=== PATIENT | female | born 2005 | race Caucasian/White ===

== ENCOUNTER 2023-01-14 23:57 | Observation (INO) | payer SELFPAY ==
[2023-01-14 23:56] VITALS: BP 148/107
[2023-01-15] VITALS (89 sets, daily range): BP systolic 75–171; BP diastolic 41–107; PULSE 47–117; RESP 6–48; TEMP 36.4–37.1; O2SAT 93–100; BMI 32.9; BMI 36.7
--- NOTE | 2023-01-15 00:07 | ED_ITS ---
Documented by User: Elliot Manzano MD 01/17/23 07:29 HPI - General Adult General Chief complaint: Altered Mental Status Stated complaint: ALTERED MENTAL STATUS Time Seen by Provider: 01/15/23 00:07 History of Present Illness HPI narrative: Patient brought in via EMS with a complaint of a seizure. Patient has a history of epilepsy and is currently on divalproex, hydroxyzine, venlafaxine, and lithium. Patient was admitted to [facility] December 31 for seizure workup. She was seen by neurology. She had 4 visits in the last couple of weeks for seizure and syncope. The patient has a history of attention deficit/hyperactivity disorder, anxiety, cerebral palsy, depression, oppositional defiant disorder. She had CSF shunt, and tonsillectomy. Patient also had a recent psychiatric admission where she is regarded as Gerard?work on her tiled, 17-year-old t ransgender female to male patient. Patient's history is complicated by PTSD, and lack of social support, and homelessness. She has documented noncompliance with her antiepileptic medicine. She [facility] [place]. Patient was adopted at the age of 4. He does not have any relationship with the adoptive family. Patient is not providing history on arrival. The only history we're able to obtain is from Feliciano Cabrera a 17-year-old male from [place] who states he met this patient 2 weeks ago on [facility]. He has been conversing with her and went and picked her up Sunday morning at 4:30 AM. He states he picked the patient up at [address] [facility] [place] [address]. He states that looked like the school grounds area. He was not concerned because he states the patient is getting her GED. This person states he had intercourse with the patient yesterday. He states in the afternoon they went to the family reunion and the patient She drank it twisted tea. She was acting normal and later was sleeping so they were walking the patient to the car and she started vomiting she was shaking her eyes were closed the called for one of the relatives with the nurse who placed the patient on the right lateral decubitus. She stated she noted the patient rolling her eyes and looking like she was having a seizure. The patient did not have any urinary incontinence or bowel incontinence. She did not bite her tongue. EMS was contacted and they stated the patient had a bag of pills with her. Feliciano stated that he knows the patient has a history of seizures because during the conversation she mentioned that she wasn't the hospital in [place] 2 weeks ago to be checked for seizures and they didn't want testing there. He denies any other drug abuse, or trauma. States the patient had not been sick with any runny nose, cough had not complained of anything throughout the day. Patient arrives to the emergency department and has not conversive. She is not providing any history. She is awake alert, makes eye contact intermittently. Related Data Home Medications Medication Instructions Recorded Confirmed divalproex 500 mg tablet,delayed 500 mg PO BID 01/15/23 01/16/23 release lithium carbonate 300 mg capsule 300 mg PO TID 01/15/23 01/16/23 venlafaxine 75 mg capsule,extended 75 mg PO QDAY 01/15/23 01/16/23 release 24 hr docusate sodium 100 mg capsule 100 mg PO BID PRN constipation 01/16/23 01/16/23 (Col-Rite) hydroxyzine pamoate 25 mg capsule 25 mg PO BID PRN anxiety 01/16/23 01/16/23 (Vistaril) prazosin 5 mg capsule (Minipress) 5 mg PO DAILY 01/16/23 01/16/23 Allergies Allergy/AdvReac Type Severity Reaction Status Date / Time haloperidol [From Haldol] Allergy Severe Verified 01/15/23 13:15 Review of Systems ROS Status of ROS unobtainable due to medical condition and unobtainable due to mental status Exam Narrative Exam Narrative: Nurses notes and vital signs reviewed and patient is not hypoxic. General: Nontoxic, and in no apparent distress. Skin: Warm, dry, no pallor noted. No Rash Head: Normocephalic, atraumatic. Neck: Supple, non-tender. Eye: Pupils are equal, round and EOMI. No scleral icterus. Ears, Nose, Mouth, and Throat: TM clear, no posterior oropharynx erythema or nasal mucosal hypertrophy, uvula is mid-line Oral mucosa is moist Cardiovascular: Regular Rate and Rhythm without murmur, gallop or rub. Respiratory: No accessory muscle use or respiratory distress. Lungs are clear to auscultation, no wheezing, rales or rhonchi Chest Wall: no tenderness Back: No midline thoracic or lumbar vertebral tenderness. No CVA tenderness Musculoskeletal: normal ROM, no calf or popliteal tenderness, no lower extremity edema/swelling GI: obese,Abdomen is soft, non-distended. Normal bowel sounds. Lower abdomen old ecchymosis noted. No masses appreciated. No tenderness to palpation. No rebound, guarding, or rigidity noted. Genitourinary: Female genitalia noted. There is post amount of semen in the vaginal area. There is no erythema, no ecchymosis, no tears noted. Neurological: A&O x1. No Focal cranial nerve dysfunction observed. Moves all extremities. Psychiatric: Uncooperative, intermittent tremor and staring at times. Patient is able to blink through the episodes. She is able to talkAnswered questions, and and understand during this episode and her vital signs remained normal. Constitutional Vital Signs, click to edit/add: Last Vital Signs Temp 97.6 F 01/16/23 07:11 Pulse 96 H 01/16/23 13:50 Resp 27 H 01/16/23 13:50 BP 116/72 01/16/23 11:43 Pulse Ox 98 01/16/23 15:48 O2 Del Method Room Air 01/16/23 15:48 Course Vital Signs Vital signs: Vital Signs Blood Pressure 148/107 H 01/14/23 23:56 Temperature 97.6 F 01/16/23 07:11 Pulse Rate 96 H 01/16/23 13:50 Respiratory Rate 27 H 01/16/23 13:50 Blood Pressure 116/72 01/16/23 11:43 Pulse Oximetry 98 01/16/23 15:48 Oxygen Delivery Method Room Air 01/16/23 15:48 Medical Decision Making [facility] Narrative Medical decision making narrative: Because of the patient's history and findings on exam police was contacted and case repeat head to be done. We did not know if the patient had any consensual coitus or not. When the patient woke up and was willing to answer questions she did tell me that the intercourse was consensual. Can't did talk to the waiter/waitress formal and debarker operator who determined there was no criminal activity suspected and that the patient and friend were free to do as they like. Patient's mentation was improving. She was more conversive and answering questions. Medical records were obtained from him before. The patient had admission on the , , , to the emergency department for seizures. She was [facility] was seen by neurology and psychiatry and subsequently was discharged on Depakote 750 mg twice a day. Patient had an EKG done. She had an MRI scheduled as an outpatient and a neurology follow-up. The patient does work was done and is unremarkable. Patient was given normal saline. as we were discussing the patient's discharge plan, the patient stated she has to urinate. As we asked the patient to get up to get to the commode she started rolling her eyes again turning her head to the left and although she is answering questions during this episode, she at times stares. The patient has a history of seizures and her CT scan demonstrates brain congenital abnormalities. Although there is also a behavioral component to her presentation the patient was given 1 mg of Ativan IV. At this time I do not have a lithium level, or at Depakote level. The patient was loaded with 1.5 g of Keppra and [facility] was contacted to transfer the patient. Patient sleeping at this time. Vital signs are stable. Patient was discussed with Dr. Fontenot from [facility] medicine service who has accepted the patient in transfer. Pt signed out to Dr. Cobb at the end of my shift awaiting bed at [facility]. Dr Cobb : At at 12:15 PM and the patient has been here almost 12 hours the patient opens her eyes and sit up rocking herself back and forth while talking to us she did request that she is hungry and she would like some food but I did explain to her that she need to be more awake with a fluid The patient still awaiting placement after she had an accepting doctor in [facility] the patient case was discussed with Dr. Amato she will be admitted to the hospital awaiting bed assignment from [facility] While taking the patient up to her room awaiting assignment from [facility] the patient started crying and trying to get out of bed she was provided with Ativan as well as Benadryl IM, spoke with patient extensively she does not want to say why she is crying, restraints applied to avoid the patient getting out of bed and hurting herself After receiving medication the patient was still crying she broke of the soft restraint I have to put her in leather restraints the patient did mention that she wants me to give her all her medications so that she and she continues to crack uncontrollably, the patient is not giving a lot of complaint except for crying Doctor Lm called and updated Differential Diagnosis Differential Diagnosis: Seizure, epilepsy, drug abuse Medical Records Medical records reviewed: Yes I reviewed the patient's medical records Medical records narrative: [facility] records it by me, And were used to aid in the medical decision making. All 84 pages of medical records from admissions and emergency department visits with consultations to neurology and psych highest wrist were reviewed by me Lab Data Lab results reviewed: Yes I reviewed the patient's lab results Labs: Lab Results 01/15/23 01/15/23 Range/Units 00:05 01:45 WBC 11.9 H (4.0-11.0) 10^3/uL RBC 4.47 (4.20-5.40) 10^6/uL Hgb 13.5 (12.0-16.0) g/dL Hct 40.1 (36.0-48.0) % MCV 89.7 (81.0-99.0) fL MCH 30.2 (26.7-34.0) pg MCHC 33.7 (29.9-35.2) g/dL RDW 13.0 (11.0-15.0) % Plt Count 306 (150-450) 10^3/uL MPV 9.9 (9.5-13.5) fL Neut % (Auto) 67.1 (43.0-75.0) % Lymph % (Auto) 17.9 L (20.5-60.0) % [place] % (Auto) 12.1 H (1.7-12.0) % Eos % (Auto) 1.5 (0.9-7.0) % Baso % (Auto) 0.4 (0.2-2.0) % Neut # (Auto) 8.0 H (1.4-6.5) 10^3/uL Lymph # (Auto) 2.1 (1.2-3.8) 10^3/uL [place] # (Auto) 1.4 H (0.3-0.8) 10^3/uL Eos # (Auto) 0.2 (0.0-0.7) 10^3/uL Baso # (Auto) 0.1 (0.0-0.1) 10^3/uL Abs Immat Gran (auto) 0.12 H (0.00-0.03) 10^3/uL Imm/Tot Granulo (auto) 1.0 H (0.0-0.5) % Sodium 139 (136-145) mmol/L Potassium 3.8 (3.5-5.1) mmol/L Chloride 104 (98-107) mmol/L Carbon Dioxide 24.2 (21.0-32.0) mmol/L Anion Gap 14.6 BUN 16.0 (6.4-19.3) mg/dL Creatinine 1.11 H (0.55-1.02) mg/dL Est GFR ( Amer) >60 (>=60) Est GFR (Non-Af Amer) >60 (>=60) BUN/Creatinine Ratio 14.4 Glucose 112 H (74-106) mg/dL Lactate 1.6 (0.4-2.0) mmol/L Calcium 9.0 (8.5-10.1) mg/dL Total Bilirubin 0.2 (0.2-1.0) mg/dL AST 18 (15-37) U/L ALT 33 (14-59) U/L Alkaline Phosphatase 67 (46-116) U/L Ammonia 51 H* (11-32) umol/L Total Protein 7.5 (6.4-8.2) g/dL Albumin 3.9 (3.4-5.0) g/dL Globulin 3.6 g/dL Albumin/Globulin Ratio 1.1 TSH 1.966 (0.516-4.130) uIU/mL Urine Color Yellow (YELLOW) Urine Clarity Clear (CLEAR) Urine pH 6.0 (5.0-9.0) Ur Specific [place] 1.025 (1.005-1.025) Urine Protein Trace (NEG/TRACE) mg/dL Urine Glucose (UA) Negative (NEGATIVE) mg/dL Urine Ketones Trace A (NEGATIVE) mg/dL Urine Occult Blood Small A (NEGATIVE) Urine Nitrite Negative (NEGATIVE) Urine Bilirubin Negative (NEGATIVE) Urine Urobilinogen 1.0 (0.2-1.0) EU/dL Ur Leukocyte Esterase Negative (NEGATIVE) Urine RBC 0-2 (0-2) #/HPF Urine WBC 0-2 A (NONE SEEN) #/HPF Ur Squamous Epith Cells Rare (NONE/RARE) #/LPF Urine Crystals None seen (None Seen) #/HPF Urine Bacteria Small A (NONE SEEN) #/HPF Urine Casts None seen (NONE SEEN) #/LPF Urine Mucus Small A (NONE SEEN) Ur Culture Indicated? Yes Urine HCG, Qual Negative (NEGATIVE) Salicylates <2.8 (<=19.9) mg/dL Urine Opiates Screen Negative (NEGATIVE) Ur Buprenorphine Scrn Negative (NEGATIVE) Ur Oxycodone Screen Negative (NEGATIVE) Urine Methadone Screen Negative (NEGATIVE) Ur Propoxyphene Screen Negative (NEGATIVE) Acetaminophen <2.0 L (10.0-30.0) ug/mL Ur Barbiturates Screen Negative (NEGATIVE) U Tricyclic Antidepress Negative (NEGATIVE) Ur Phencyclidine Scrn Negative (NEGATIVE) Ur Amphetamines Screen Negative (NEGATIVE) U Methamphetamines Scrn Negative (NEGATIVE) U Benzodiazepines Scrn Negative (NEGATIVE) [place] 0.2 L (0.5-1.2) mmol/L Urine Cocaine Screen Negative (NEGATIVE) U Cannabinoids Screen Positive A (NEGATIVE) Ethanol Quant <3 mg/dL Imaging Data CT scan - head: Attestation: I have reviewed the pertinent imaging results. Radiologist's impression: Patient Name: ZACHARY ALSTON MRN: [facility]:[id number] date: 2005 Sex: F Assigned Patient Location: ER Current Patient Location: ED.MAIN Accession/Order Number: [id number] Exam Date: 01/15/2023 02:10 Report Date: 01/15/2023 04:12 At the request of: ELLIOT MANZANO Procedure: CT head/brain wo con INDICATION: 17 years old; Female. Confusional seizure-like activity. TECHNIQUE: CT Head (ax/cor/sag reformats). Ionizing radiation dose reduced via iterative reconstruction/FBP blend and body size kV/mA adjustment. Comparison: None FINDINGS: POSTOPERATIVE CHANGES: None. BRAIN PARENCHYMA: There are developmental anomalies present. 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 There is thickened gyri present along the margin of the defect consistent with cortical heterotopias. 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 The corpus callosum does appear intact. No intraparenchymal or extra-axial hemorrhage. No mass effect. No midline shift or herniation. There is normal sanders/white matter otherwise appreciated. VENTRICLES/EXTRA-AXIAL SPACES: Ventricular system is enlarged consistent with the septal optic dysplasia and other developmental anomalies. SINUSES/MASTOIDS: The visualized sinuses are clear. Mastoids and middle ears are clear. Nasal septal deviation. MSK: No displaced or depressed calvarial fracture is noted. OTHER: No hyperdense intraluminal thrombus. IMPRESSION: 1. No acute intracranial abnormality. No hemorrhage or mass effect. 2. 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 A telephone call regarding the findings the study was made to and acknowledged by Dr. Manzano in the emergency department at 4:10 AM on 01/15/2023. Electronically authenticated by: LUNA COLON Date: 01/15/2023 04:12 ECG Data Attestation: I personally reviewed and interpreted this ECG as follows: Interpretation: Sinus rhythm without any EKG ischemic changes. Critical Care Time Critical Care Time Critical Care Time: Yes Total Critical Care Time: 60 Attestation: Critical Care Time: 60 minutes, critical care time is separate from any procedures that are performed. The following was considered in the determination of critical care but not limited to the level medical decision-making, intensive cardiac and/or respiratory monitor, frequent vital sign monitoring, evaluation of laboratory studies, evaluation of a radiographic studies, oxygen monitoring and constant monitoring. Discharge Plan Discharge Chief Complaint: Altered Mental Status Clinical Impression: Seizures, Altered mental status, Increased ammonia level Patient Disposition: Admitted As Inpatient Time of Disposition Decision: 06:02 Condition: Good Discharge Date/Time: 01/15/23 14:48 Documented by User: Faina Cobb MD 01/15/23 13:16 HPI - General Adult General Chief complaint: Altered Mental Status Stated complaint: ALTERED MENTAL STATUS Time Seen by Provider: 01/15/23 00:07 Related Data Home Medications Medication Instructions Recorded Confirmed divalproex 500 mg tablet,delayed 500 mg PO BID 01/15/23 01/16/23 release lithium carbonate 300 mg capsule 300 mg PO TID 01/15/23 01/16/23 venlafaxine 75 mg capsule,extended 75 mg PO QDAY 01/15/23 01/16/23 release 24 hr docusate sodium 100 mg capsule 100 mg PO BID PRN constipation 01/16/23 01/16/23 (Col-Rite) hydroxyzine pamoate 25 mg capsule 25 mg PO BID PRN anxiety 01/16/23 01/16/23 (Vistaril) prazosin 5 mg capsule (Minipress) 5 mg PO DAILY 01/16/23 01/16/23 Allergies Allergy/AdvReac Type Severity Reaction Status Date / Time haloperidol [From Haldol] Allergy Severe Verified 01/15/23 13:15 Exam Constitutional Vital Signs, click to edit/add: Last Vital Signs Temp 97.6 F 01/16/23 07:11 Pulse 96 H 01/16/23 13:50 Resp 27 H 01/16/23 13:50 BP 116/72 01/16/23 11:43 Pulse Ox 98 01/16/23 15:48 O2 Del Method Room Air 01/16/23 15:48 Course Vital Signs Vital signs: Vital Signs Blood Pressure 148/107 H 01/14/23 23:56 Temperature 97.6 F 01/16/23 07:11 Pulse Rate 96 H 01/16/23 13:50 Respiratory Rate 27 H 01/16/23 13:50 Blood Pressure 116/72 01/16/23 11:43 Pulse Oximetry 98 01/16/23 15:48 Oxygen Delivery Method Room Air 01/16/23 15:48 Medical Decision Making MDM Narrative Medical decision making narrative: Because of the patient's history and findings on exam police was contacted and case repeat head to be done. We did not know if the patient had any consensual coitus or not. When the patient woke up and was willing to answer questions she did tell me that the intercourse was consensual. Can't did talk to the waiter/waitress formal and debarker operator who determined there was no criminal activity suspected and that the patient and friend were free to do as they like. Patient's mentation was improving. She was more conversive and answering questions. Medical records were obtained from him before. The patient had admission on the , , , to the emergency department for seizures. She was admitted at the [facility] from the [facility] the was seen by neurology and psychiatry and subsequently was discharged on Depakote 750 mg twice a day. Patient had an EKG done. She had an MRI scheduled as an outpatient and a neurology follow-up. The patient does work was done and is unremarkable. Patient was given normal saline. as we were discussing the patient's discharge plan, the patient stated she has to urinate. As we asked the patient to get up to get to the commode she started rolling her eyes again turning her head to the left and although she is answering questions during this episode, she at times stares. The patient has a history of seizures and her CT scan demonstrates brain congenital abnormalities. Although there is also a behavioral component to her presentation the patient was given 1 mg of Ativan IV. At this time I do not have a lithium level, or at Depakote level. The patient was loaded with 1.5 g of Keppra and [facility] was contacted to transfer the patient. Patient sleeping at this time. Vital signs are stable. Patient was discussed with Dr. Fontenot from [facility] medicine service who has accepted the patient in transfer. Dr Cobb : At at 12:15 PM and the patient has been here almost 12 hours the patient opens her eyes and sit up rocking herself back and forth while talking to us she did request that she is hungry and she would like some food but I did explain to her that she need to be more awake with a fluid The patient still awaiting placement after she had an accepting doctor in [facility] the patient case was discussed with Dr. Amato she will be admitted to the hospital awaiting bed assignment from [facility] While taking the patient up to her room awaiting assignment from [facility] the patient started crying and trying to get out of bed she was provided with Ativan as well as Benadryl CLAUS, spoke with patient extensively she does not want to say why she is crying, restraints applied to avoid the patient getting out of bed and hurting herself After receiving medication the patient was still crying she broke of the soft restraint I have to put her in leather restraints the patient did mention that she wants me to give her all her medications so that she and she continues to crack uncontrollably, the patient is not giving a lot of complaint except for crying Doctor Lm called and updated Lab Data Labs: Lab Results 01/15/23 01/15/23 Range/Units 00:05 01:45 WBC 11.9 H (4.0-11.0) 10^3/uL RBC 4.47 (4.20-5.40) 10^6/uL Hgb 13.5 (12.0-16.0) g/dL Hct 40.1 (36.0-48.0) % MCV 89.7 (81.0-99.0) fL MCH 30.2 (26.7-34.0) pg MCHC 33.7 (29.9-35.2) g/dL RDW 13.0 (11.0-15.0) % Plt Count 306 (150-450) 10^3/uL MPV 9.9 (9.5-13.5) fL Neut % (Auto) 67.1 (43.0-75.0) % Lymph % (Auto) 17.9 L (20.5-60.0) % [place] % (Auto) 12.1 H (1.7-12.0) % Eos % (Auto) 1.5 (0.9-7.0) % Baso % (Auto) 0.4 (0.2-2.0) % Neut # (Auto) 8.0 H (1.4-6.5) 10^3/uL Lymph # (Auto) 2.1 (1.2-3.8) 10^3/uL [place] # (Auto) 1.4 H (0.3-0.8) 10^3/uL Eos # (Auto) 0.2 (0.0-0.7) 10^3/uL Baso # (Auto) 0.1 (0.0-0.1) 10^3/uL Abs Immat Gran (auto) 0.12 H (0.00-0.03) 10^3/uL Imm/Tot Granulo (auto) 1.0 H (0.0-0.5) % Sodium 139 (136-145) mmol/L Potassium 3.8 (3.5-5.1) mmol/L Chloride 104 (98-107) mmol/L Carbon Dioxide 24.2 (21.0-32.0) mmol/L Anion Gap 14.6 BUN 16.0 (6.4-19.3) mg/dL Creatinine 1.11 H (0.55-1.02) mg/dL Est GFR ( Amer) >60 (>=60) Est GFR (Non-Af Amer) >60 (>=60) BUN/Creatinine Ratio 14.4 Glucose 112 H (74-106) mg/dL Lactate 1.6 (0.4-2.0) mmol/L Calcium 9.0 (8.5-10.1) mg/dL Total Bilirubin 0.2 (0.2-1.0) mg/dL AST 18 (15-37) U/L ALT 33 (14-59) U/L Alkaline Phosphatase 67 (46-116) U/L Ammonia 51 H* (11-32) umol/L Total Protein 7.5 (6.4-8.2) g/dL Albumin 3.9 (3.4-5.0) g/dL Globulin 3.6 g/dL Albumin/Globulin Ratio 1.1 TSH 1.966 (0.516-4.130) uIU/mL Urine Color Yellow (YELLOW) Urine Clarity Clear (CLEAR) Urine pH 6.0 (5.0-9.0) Ur Specific [place] 1.025 (1.005-1.025) Urine Protein Trace (NEG/TRACE) mg/dL Urine Glucose (UA) Negative (NEGATIVE) mg/dL Urine Ketones Trace A (NEGATIVE) mg/dL Urine Occult Blood Small A (NEGATIVE) Urine Nitrite Negative (NEGATIVE) Urine Bilirubin Negative (NEGATIVE) Urine Urobilinogen 1.0 (0.2-1.0) EU/dL Ur Leukocyte Esterase Negative (NEGATIVE) Urine RBC 0-2 (0-2) #/HPF Urine WBC 0-2 A (NONE SEEN) #/HPF Ur Squamous Epith Cells Rare (NONE/RARE) #/LPF Urine Crystals None seen (None Seen) #/HPF Urine Bacteria Small A (NONE SEEN) #/HPF Urine Casts None seen (NONE SEEN) #/LPF Urine Mucus Small A (NONE SEEN) Ur Culture Indicated? Yes Urine HCG, Qual Negative (NEGATIVE) Salicylates <2.8 (<=19.9) mg/dL Urine Opiates Screen Negative (NEGATIVE) Ur Buprenorphine Scrn Negative (NEGATIVE) Ur Oxycodone Screen Negative (NEGATIVE) Urine Methadone Screen Negative (NEGATIVE) Ur Propoxyphene Screen Negative (NEGATIVE) Acetaminophen <2.0 L (10.0-30.0) ug/mL Ur Barbiturates Screen Negative (NEGATIVE) U Tricyclic Antidepress Negative (NEGATIVE) Ur Phencyclidine Scrn Negative (NEGATIVE) Ur Amphetamines Screen Negative (NEGATIVE) U Methamphetamines Scrn Negative (NEGATIVE) U Benzodiazepines Scrn Negative (NEGATIVE) [place] 0.2 L (0.5-1.2) mmol/L Urine Cocaine Screen Negative (NEGATIVE) U Cannabinoids Screen Positive A (NEGATIVE) Ethanol Quant <3 mg/dL Discharge Plan Discharge Chief Complaint: Altered Mental Status Clinical Impression: Seizures, Altered mental status, Increased ammonia level Patient Disposition: Admitted As Inpatient Time of Disposition Decision: 06:02 Condition: Good Discharge Date/Time: 01/15/23 14:48
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
--- NOTE | 2023-01-15 01:06 | ECG_ITS ---
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
--- NOTE | 2023-01-15 01:15 | CT_ITS ---
The [address] [address] Patient Name: ZACHARY ALSTON MRN: [id number] date: 2005 Sex: F Assigned Patient Location: ER Current Patient Location: ED.MAIN Accession/Order Number: [id number] Exam Date: 01/15/2023 02:10 Report Date: 01/15/2023 04:12 At the request of: ELLIOT MANZANO Procedure: CT head/brain wo con INDICATION: 17 years old; Female. Confusional seizure-like activity. TECHNIQUE: CT Head (ax/cor/sag reformats). Ionizing radiation dose reduced via iterative reconstruction/FBP blend and body size kV/mA adjustment. Comparison: None FINDINGS: POSTOPERATIVE CHANGES: None. BRAIN PARENCHYMA: There are developmental anomalies present. 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 There is thickened gyri present along the margin of the defect consistent with cortical heterotopias. 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 The corpus callosum does appear intact. No intraparenchymal or extra-axial hemorrhage. No mass effect. No midline shift or herniation. There is normal sanders/white matter otherwise appreciated. VENTRICLES/EXTRA-AXIAL SPACES: Ventricular system is enlarged consistent with the septal optic dysplasia and other developmental anomalies. SINUSES/MASTOIDS: The visualized sinuses are clear. Mastoids and middle ears are clear. Nasal septal deviation. MSK: No displaced or depressed calvarial fracture is noted. OTHER: No hyperdense intraluminal thrombus. CT/CT head/brain wo con IMPRESSION: 1. No acute intracranial abnormality. No hemorrhage or mass effect. 2. 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 A telephone call regarding the findings the study was made to and acknowledged by Dr. Manzano in the emergency department at 4:10 AM on 01/15/2023. Electronically authenticated by: LUNA COLON Date: 01/15/2023 04:12
[2023-01-15 01:20] LABS: Basophils Absolute Auto 0.1 10^3/uL (0.0-0.1); Basophils Percent Auto 0.4 % (0.2-2.0); Eosinophils Absolute Auto 0.2 10^3/uL (0.0-0.7); Eosinophils Percent Auto 1.5 % (0.9-7.0); Hematocrit 40.1 % (36.0-48.0); Hemoglobin 13.5 g/dL (12.0-16.0); Immature Granulocytes Abs Auto 0.12 10^3/uL (0.00-0.03); Lymphocytes Absolute Auto 2.1 10^3/uL (1.2-3.8); Lymphocytes Percent Auto 17.9 % (20.5-60.0); Mean Corpuscular HGB Conc 33.7 g/dL (29.9-35.2); Mean Corpuscular Hemoglobin 30.2 pg (26.7-34.0); Mean Corpuscular Volume 89.7 fL (81.0-99.0); Mean Platelet Volume 9.9 fL (9.5-13.5); Monocytes Absolute Auto 1.4 10^3/uL (0.3-0.8); Monocytes Percent Auto 12.1 % (1.7-12.0); Neutrophils Percent Auto 67.1 % (43.0-75.0); Platelet Count 306 10^3/uL (150-450); Red Blood Count 4.47 10^6/uL (4.20-5.40); White Blood Count 11.9 10^3/uL (4.0-11.0)
[2023-01-15 01:22] LABS: Bilirubin Urine NEGATIVE (NEGATIVE); Blood Urine SMALL (NEGATIVE); Clarity Urine CLEAR (CLEAR); Color Urine YELLOW (YELLOW); Glucose Urine UA NEGATIVE (NEGATIVE); Ketones Urine TRACE mg/dL (NEGATIVE); Leukocyte Esterase Urine NEGATIVE (NEGATIVE); Nitrite Urine NEGATIVE (NEGATIVE); Protein Urine TRACE mg/dL (NEG/TRACE); Specific Gravity Urine 1.025 (1.005-1.025)
[2023-01-15 01:26] LABS: Urine Microscopic Indicated YES
[2023-01-15 01:35] LABS: Bacteria Urine SMALL #/HPF (NONE SEEN); Mucus Urine SMALL (NONE SEEN); RBC Urine 0-2 #/HPF (0-2); WBC Urine 0-2 #/HPF (NONE SEEN)
[2023-01-15 01:36] LABS: Amphetamine Screen Urine NEGATIVE (NEGATIVE); Barbiturates Screen Urine NEGATIVE (NEGATIVE); Benzodiazepines Screen Urine NEGATIVE (NEGATIVE); Buprenorphine Screen Urine NEGATIVE (NEGATIVE); Cannabinoid Screen Urine POSITIVE (NEGATIVE); Cast Seen? NONE SEEN #/LPF (NONE SEEN); Cocaine Screen Urine NEGATIVE (NEGATIVE); Crystals Seen? None Seen #/HPF (None Seen); Methadone Screen Urine NEGATIVE (NEGATIVE); Methamphetamines Screen Urine NEGATIVE (NEGATIVE); Opiate Screen Urine NEGATIVE (NEGATIVE); Oxycodone Screen Urine NEGATIVE (NEGATIVE); Phencyclidine Screen Urine NEGATIVE (NEGATIVE); Squamous Epithelial Cell Urine RARE #/LPF (NONE/RARE); Tricyclic Antidepressant Urine NEGATIVE (NEGATIVE); Urine Culture Indicated YES
[2023-01-15 01:37] LABS: Alanine Aminotransferase 33 U/L (14-59); Albumin Globulin Ratio 1.1; Albumin Level 3.9 g/dL (3.4-5.0); Alkaline Phosphatase 67 U/L (46-116); Anion Gap 14.6; Aspartate Amino Transferase 18 U/L (15-37); BUN Creatinine Ratio 14.4; Bilirubin Total 0.2 mg/dL (0.2-1.0); Carbon Dioxide 24.2 mmol/L (21.0-32.0); Chloride 104 mmol/L (98-107); Estimated GFR (African America >60 (>=60); Estimated GFR (Non-African Ame >60 (>=60); Globulin 3.6 g/dL; Glucose 112 mg/dL (74-106); Potassium 3.8 mmol/L (3.5-5.1); Sodium 139 mmol/L (136-145); Total Protein 7.5 g/dL (6.4-8.2)
[2023-01-15 01:39] LABS: Lactate/Lactic Acid 1.6 mmol/L (0.4-2.0)
[2023-01-15 01:44] LABS: Acetaminophen <2.0 ug/mL (10.0-30.0); Ethanol <3 mg/dL; Salicylate <2.8 mg/dL (<=19.9); Thyroid Stimulating Hormone 1.966 uIU/mL (0.516-4.130)
[2023-01-15 01:45] LABS: Ammonia 51 umol/L (11-32)
[2023-01-15] MEDS: 0.9 % SODIUM CHLORIDE 1,000 ML 1000 ML IV (02:57)
[2023-01-15] MEDS: LORAZEPAM 2 MG/ML 1 ML VIAL 1 MG IV ×3 (04:32→20:52)
[2023-01-15] MEDS: LEVETIRACETAM 1,500 MG in 0.9 % SODIUM CHLORIDE 100 ML 460 MG IV (04:34)
[2023-01-15 08:32] LABS: HCG Qualitative Urine* NEGATIVE (NEGATIVE)
[2023-01-15] MEDS: LORAZEPAM 2 MG/ML 1 ML VIAL 1 MG IM (12:42)
[2023-01-15] MEDS: DIPHENHYDRAMINE HCL 50 MG/ML (1ML) VIAL IM (12:42)
--- NOTE | 2023-01-15 12:44 | PC.NURSE ---
unable to reason with pt, pt continues to try to climb out of bed. Pt whining and rocking self continually. unable to get updated vitals d/t pt puling extremities back and pulling off all equipment.
--- NOTE | 2023-01-15 15:11 | PC.NURSE ---
1448: BEDSIDE REPORT GIVEN TO PRISCILA MELENDREZ, RM 272. PT STABLE UPON ADMISSION
--- NOTE | 2023-01-15 15:25 | PC.NURSE ---
pt intermittently opens eyes. does not answer questions except when asked if having pain, states everywhere.' pt also asked is he still here? does not specify a name. pt restrained, restless in bed, startles to touch. quickly returns to snoring. seizure pads in place. does not follow commands, but does move all extremities on own. this nurse remains at bedside.
--- NOTE | 2023-01-15 15:36 | PC.NURSE ---
per history on chart, pt [facility]. does not answer questions
[2023-01-15] MEDS: ENOXAPARIN SODIUM 40 MG/0.4 ML SYRINGE SUBQ (15:58)
[2023-01-16] VITALS (83 sets, daily range): BP systolic 99–125; BP diastolic 60–74; PULSE 51–96; RESP 0–45; TEMP 36.4–36.6; O2SAT 93–100
[2023-01-16 04:10] LABS: Lithium (Eskalith(R)), Serum 0.2 mmol/L (0.5-1.2)
[2023-01-16] MEDS: LORAZEPAM 2 MG/ML 1 ML VIAL 1 MG IV ×2 (04:24→14:01)
--- NOTE | 2023-01-16 04:49 | PC.NURSE ---
soft ankle restraints applied to bilat ankles - pt kicking bedrail and staff
[2023-01-16] MEDS: DIPHENHYDRAMINE HCL 50 MG/ML (1ML) VIAL IV ×2 (05:30→14:29)
--- NOTE | 2023-01-16 10:22 | CM.NOTE ---
Rounds made with Dr. Loaiza, he spoke with Isabella transfer line from [facility] for transfer of pt.
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
[2023-01-16] MEDS: LEVETIRACETAM 1,000 MG in 0.9 % SODIUM CHLORIDE 100 ML 440 MG IV (12:28)
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
--- NOTE | 2023-01-16 13:31 | SWNOTE1 ---
is in room, nursing is in room with pt.
--- NOTE | 2023-01-16 14:28 | SWNOTE1 ---
[facility] in room as well[facility] here to take pt, pt started to have behaviors, nurses/security assisting in room. [facility] called in an extra people to help transport, they will be here in an hour.
--- NOTE | 2023-01-16 14:48 | SWNOTE1 ---
Pt did also admit to taking gummies and smoking drinking.
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
--- NOTE | 2023-01-16 15:49 | PC.NURSE ---
1510 additional [facility] staff arrived to assist with pt transport. several staff members including this nurse, security and [facility] staff present to assist pt on to stretcher. pt screaming and attempting to bite, kick and hit. call out to dr em for additional medication, applied violent restraints for pt and staff safety. security at bedside, escorted [facility] transportation to exit.
--- NOTE | 2023-01-16 16:00 | PC.NURSE ---
1600 report called to Mc at [facility] at [phone].
== END 2023-01-16 15:34 | disposition short-term general hospital (02) ==
LOC: ER 01-15 12:17 → ICU 01-15 12:37
PROVIDERS: Admitting Provider Family Medicine; Emergency Provider Emergency Medicine; Visit Provider Family Medicine
DX: G40.909 Epilepsy, unspecified, not intractable, without status epilepticus (principal); F31.9 Bipolar disorder, unspecified; F43.10 Post-traumatic stress disorder, unspecified; G80.9 Cerebral palsy, unspecified; F90.9 Attention-deficit hyperactivity disorder, unspecified type; F41.9 Anxiety disorder, unspecified; F91.3 Oppositional defiant disorder; E72.20 Disorder of urea cycle metabolism, unspecified; Z59.01 Sheltered homelessness; Z79.899 Other long term (current) drug therapy
CPT/HCPCS: 36415; 70450; 80053; 80164; 80178; 80179; 80307; 80320; 80329; 81001; 82140; 83605; 84443; 84703; 85025; 87086; 93005; 94761; 96361; 96365; 96366; 96372; 96375; 96376; 99285; G0378; Q3014